=== PATIENT | female | born 1955 | race Caucasian/White ===

== ENCOUNTER 2018-10-17 22:16 | Emergency (ER) | payer BC ==
[~2018-10-17] VITALS: Ht 162.6 cm; Wt 90.7 kg
[~2018-10-17 22:16] MED LIST: ACET325 PO; ALBU90OI61 INH; AMOCLA500 PO; ASPI81EC PO; BENADRYL25 MG PO; CYAN500 PO; DOCU100 PO; FLUT.05NI; FOLI1 PO; MAGCHL64ER PO; OMEP20ER PO; OXYC5 PO; PRIM50 PO; PROP60 PO; TELM40 PO; THIA100 PO
[2018-10-17 23:24] LABS: BASOPHILS ABSOLUTE AUTO 0.08 K/mm3 (0.00-0.23); BASOPHILS PERCENT AUTO 1 % (0-2); EOSINOPHILS ABSOLUTE AUTO 0.51 K/mm3 (0.00-0.68); EOSINOPHILS PERCENT AUTO 7 % (0-6); Hematocrit 38.9 % (33.0-51.0); Hemoglobin 13.1 g/dL (11.5-16.0); IMMATURE GRAN ABSOLUTE AUTO 0.02 K/mm3 (0.00-0.10); IMMATURE GRAN PERCENT AUTO 0 % (0-1); LYMPHOCYTES ABSOLUTE AUTO 1.91 K/mm3 (0.84-5.20); LYMPHOCYTES PERCENT AUTO 24 % (21-46); MONOCYTES ABSOLUTE AUTO 1.05 K/mm3 (0.16-1.47); MONOCYTES PERCENT AUTO 13 % (4-13); Mean Corpuscular HGB 33.2 pg (26.0-34.0); Mean Corpuscular HGB Conc 33.7 g/dL (31.5-36.5); Mean Corpuscular Volume 99 fL (80-100); Mean Platelet Volume 11.2 fL (9.1-12.4); NEUTROPHILS ABSOLUTE AUTO 4.29 K/mm3 (1.96-9.15); NEUTROPHILS PERCENT AUTO 55 % (41-73); Platelet Count 142 K/mm3 (150-400); RDW Coefficient Variation 13.4 % (11.7-14.2); RDW Standard Deviation 48.9 fL (35.1-46.3); Red Blood Cell Count 3.94 M/mm3 (3.80-5.20); White Blood Cell Count 7.86 K/mm3 (4.00-11.30)
[2018-10-17 23:42] LABS: Alanine Aminotransfer (ALT/SGP 17 U/L (12-78); Albumin/Globulin Ratio 0.7 (0.8-1.8); Alk Phos 136 U/L (50-136); Anion Gap 7 mmol/L (6-16); Aspartate Aminotrans (AST/SGOT 19 U/L (12-37); Bilirubin, Total 1.6 mg/dL (0.1-1.0); Blood Urea Nitrogen 23 mg/dL (8-24); Bun/Creatinine Ratio 19.3 (12.0-20.0); CO2, Blood 25 mmol/L (21-32); Calcium, Blood 9.3 mg/dL (8.5-10.1); Chloride, Blood 108 mmol/L (98-108); Creatinine, Blood 1.19 mg/dL (0.40-1.00); Ethanol (Alcohol), Blood, Med <3 mg/dL; Globulin, Blood 4.5 g/dL (2.2-4.0); Glomerular Filtration Rate 49 (60-); Glucose, Blood 109 mg/dL (70-99); Potassium, Blood 4.5 mmol/L (3.5-5.5); Sodium, Blood 140 mmol/L (136-145); Total Protein, Blood 7.5 g/dL (6.4-8.2)
[2018-10-17] MEDS ORDERED: LACT10SY PO (23:44)
[2018-10-17] MEDS ORDERED: FURO20 PO (23:45)
[2018-10-17] MEDS ORDERED: SPIR25 PO (23:45)
[2018-10-18 00:17] LABS: Source, Urine Clean Catch
[2018-10-18 00:24] LABS: Bilirubin, Urine Neg (Neg); Blood, Urine 1+ (Neg); Glucose Qualitative, Urine Neg (Neg); Ketones, Urine 1+ (Neg); Leukocyte Esterase, Urine 2+ (Neg); Nitrite, Urine Pos (Neg); Protein, Urine 2+ (Neg); Specific Gravity, Urine 1.015 (1.003-1.022); Urobilinogen, Urine NORM (Normal)
[2018-10-18 00:26] LABS: Appearance, Urine Hazy (Clear); Color, Urine Yellow (P-Yellow)
[2018-10-18 00:32] LABS: Bacteria Many /hpf; Squamous Epithelial Cells Few /hpf (Few); White Blood Cells, Urine 25-50 /hpf (0-5)
[2018-10-18] MEDS ORDERED: CEPH500 PO (00:47)
== END 2018-10-18 00:54 | disposition left against medical advice (07) ==
LOC: ER 22:16
PROVIDERS: Emergency Medicine
DX: K72.90 Hepatic failure, unspecified without coma (principal); N39.0 Urinary tract infection, site not specified; Z79.899 Other long term (current) drug therapy; I10 Essential (primary) hypertension
CPT/HCPCS: 36415; 71046; 80053; 81001; 82140; 85025; 87077; 87086; 87186; 93005; 93010; 99285-25; G0480

== ENCOUNTER 2019-02-23 19:27 | Emergency (ER) | payer BC ==
[~2019-02-23] VITALS: Ht 162.6 cm; Wt 92.1 kg
[~2019-02-23 19:27] MED LIST changes: +CEPH500 PO; +FURO20 PO; +LACT10SY PO; +SPIR25 PO
[2019-02-23 20:31] LABS: BASOPHILS ABSOLUTE AUTO 0.07 K/mm3 (0.00-0.23); BASOPHILS PERCENT AUTO 1 % (0-2); EOSINOPHILS ABSOLUTE AUTO 0.45 K/mm3 (0.00-0.68); EOSINOPHILS PERCENT AUTO 6 % (0-6); Hemoglobin 13.4 g/dL (11.5-16.0); IMMATURE GRAN ABSOLUTE AUTO 0.02 K/mm3 (0.00-0.10); IMMATURE GRAN PERCENT AUTO 0 % (0-1); LYMPHOCYTES ABSOLUTE AUTO 1.33 K/mm3 (0.84-5.20); LYMPHOCYTES PERCENT AUTO 18 % (21-46); MONOCYTES PERCENT AUTO 10 % (4-13); Mean Corpuscular HGB 32.1 pg (26.0-34.0); Mean Corpuscular HGB Conc 32.7 g/dL (31.5-36.5); Mean Corpuscular Volume 98 fL (80-100); Mean Platelet Volume 12.1 fL (9.1-12.4); NEUTROPHILS ABSOLUTE AUTO 4.67 K/mm3 (1.96-9.15); NEUTROPHILS PERCENT AUTO 64 % (41-73); Platelet Count 171 K/mm3 (150-400); RDW Coefficient Variation 14.6 % (11.7-14.2); RDW Standard Deviation 51.4 fL (35.1-46.3); Red Blood Cell Count 4.18 M/mm3 (3.80-5.20); White Blood Cell Count 7.24 K/mm3 (4.00-11.30)
[2019-02-23 20:48] LABS: International Normalized Ratio 1.18; Prothrombin Time Results 12.3 Sec (9.7-11.5)
[2019-02-23 20:51] LABS: Albumin, Blood 3.3 g/dL (3.4-5.0); Albumin/Globulin Ratio 0.7 (0.8-1.8); Bun/Creatinine Ratio 29.3 (12.0-20.0); Calcium, Blood 9.9 mg/dL (8.5-10.1); Creatinine, Blood 1.33 mg/dL (0.40-1.00); Total Protein, Blood 8.3 g/dL (6.4-8.2)
[2019-02-23] MEDS ORDERED: EPCLUSA 400 MG1 EACH PO (21:54)
[2019-02-23] MEDS ORDERED: RIBAPAK PO (21:55)
[2019-02-23 22:17] LABS: Source, Urine Voided
[2019-02-23 22:22] LABS: Blood, Urine 5+ (Neg); Color, Urine Amber (P-Yellow); Glucose Qualitative, Urine Neg (Neg); Ketones, Urine 1+ (Neg); Leukocyte Esterase, Urine 1+ (Neg); Nitrite, Urine Neg (Neg); Protein, Urine 2+ (Neg); Urobilinogen, Urine 1+ (Normal)
[2019-02-23 22:29] LABS: Appearance, Urine Hazy (Clear); Bilirubin, Urine 1+ (Neg)
[2019-02-23 22:30] LABS: Red Blood Cells, Urine 25-50 /hpf (0-2)
[2019-02-23 22:31] LABS: Bacteria Mod /hpf; Squamous Epithelial Cells Mod /hpf (Few)
== END 2019-02-23 23:45 | disposition home or self-care (01) ==
LOC: ER 19:27
PROVIDERS: Physician Assistant
DX: K72.90 Hepatic failure, unspecified without coma (principal); I10 Essential (primary) hypertension; Z79.899 Other long term (current) drug therapy
CPT/HCPCS: 36415; 71046; 80053; 81001; 82140; 85025; 85610; 85730; 87086; 93005; 93010; 96360; 99284-25; G0480; J7030; P9612

== ENCOUNTER 2019-03-05 10:54 | Inpatient (IN) | payer BC ==
[~2019-03-05] VITALS: Ht 165.1 cm; Wt 91.2 kg
[~2019-03-05 10:54] MED LIST changes: +Aldactone100 MG PO; +EPCLUSA 400 MG1 EACH PO; -FURO20 PO; +FURO40 PO; +RIBAPAK PO; -SPIR25 PO
[2019-03-05 11:25] LABS: BASOPHILS ABSOLUTE AUTO 0.06 K/mm3 (0.00-0.23); BASOPHILS PERCENT AUTO 1 % (0-2); EOSINOPHILS ABSOLUTE AUTO 0.17 K/mm3 (0.00-0.68); EOSINOPHILS PERCENT AUTO 2 % (0-6); Hematocrit 37.6 % (33.0-51.0); Hemoglobin 12.2 g/dL (11.5-16.0); IMMATURE GRAN ABSOLUTE AUTO 0.04 K/mm3 (0.00-0.10); IMMATURE GRAN PERCENT AUTO 0 % (0-1); LYMPHOCYTES ABSOLUTE AUTO 1.17 K/mm3 (0.84-5.20); LYMPHOCYTES PERCENT AUTO 13 % (21-46); MONOCYTES PERCENT AUTO 9 % (4-13); Mean Corpuscular HGB 33.4 pg (26.0-34.0); Mean Corpuscular HGB Conc 32.4 g/dL (31.5-36.5); Mean Corpuscular Volume 103 fL (80-100); Mean Platelet Volume 12.3 fL (9.1-12.4); NEUTROPHILS ABSOLUTE AUTO 6.68 K/mm3 (1.96-9.15); NEUTROPHILS PERCENT AUTO 75 % (41-73); Platelet Count 152 K/mm3 (150-400); RDW Coefficient Variation 17.3 % (11.7-14.2); RDW Standard Deviation 65.1 fL (35.1-46.3); Red Blood Cell Count 3.65 M/mm3 (3.80-5.20); White Blood Cell Count 8.92 K/mm3 (4.00-11.30)
[2019-03-05 12:14] LABS: Alanine Aminotransfer (ALT/SGP 17 U/L (12-78); Albumin, Blood 3.1 g/dL (3.4-5.0); Albumin/Globulin Ratio 0.7 (0.8-1.8); Alk Phos 146 U/L (50-136); Anion Gap 7 mmol/L (6-16); Aspartate Aminotrans (AST/SGOT 18 U/L (12-37); Bilirubin, Total 2.1 mg/dL (0.1-1.0); Blood Urea Nitrogen 39 mg/dL (8-24); Bun/Creatinine Ratio 24.7 (12.0-20.0); CO2, Blood 22 mmol/L (21-32); Calcium, Blood 9.6 mg/dL (8.5-10.1); Chloride, Blood 108 mmol/L (98-108); Creatinine, Blood 1.58 mg/dL (0.40-1.00); Globulin, Blood 4.5 g/dL (2.2-4.0); Glomerular Filtration Rate 35 (60-); Glucose, Blood 151 mg/dL (70-99); Potassium, Blood 5.8 mmol/L (3.5-5.5); Sodium, Blood 137 mmol/L (136-145); Total Protein, Blood 7.6 g/dL (6.4-8.2); Troponin I <0.015 ng/mL (0.000-0.040)
[2019-03-05 13:04] LABS: Source, Urine Catheter
[2019-03-05 13:17] LABS: Bilirubin, Urine Neg (Neg); Blood, Urine 5+ (Neg); Glucose Qualitative, Urine Neg (Neg); Ketones, Urine 1+ (Neg); Leukocyte Esterase, Urine 3+ (Neg); Nitrite, Urine Neg (Neg); Protein, Urine 2+ (Neg); Specific Gravity, Urine 1.015 (1.003-1.022); Urobilinogen, Urine 1+ (Normal)
[2019-03-05] MEDS ORDERED: RIFA550T2 PO (13:33)
[2019-03-05] MEDS ORDERED: GABA300 PO (13:34)
[2019-03-05] MEDS ORDERED: MONT10T PO (13:36)
[2019-03-05] MEDS ORDERED: Ribavirin200 M1 PO (13:38)
[2019-03-05] MEDS ORDERED: Omeprazole20 M1 PO (13:40)
[2019-03-05 13:55] LABS: Appearance, Urine Turbid (Clear); Color, Urine Yellow (P-Yellow)
[2019-03-05 13:57] LABS: Red Blood Cells, Urine TNTC /hpf (0-2); White Blood Cells, Urine TNTC /hpf (0-5)
[2019-03-05 13:59] LABS: Bacteria Many /hpf; Squamous Epithelial Cells Many /hpf (Few); Transitional Epithelial Cells Mod /hpf (0-Rare)
[2019-03-05 14:08] LABS: U Amphetamine Screen Not Detected; U Barbituate Screen Not Detected; U Benzodiazapine Screen Not Detected; U Buprenorphine Screen Not Detected; U Cannabinoids Screen Not Detected; U Cocaine Screen Not Detected; U Methadone Screen Not Detected; U Methamphetamine Screen Not Detected; U Opiates Screen Not Detected; U Oxycodone Screen Not Detected; U Phencyclidine Screen Not Detected; U Propoxyphene Screen Not Detected
[2019-03-05] MEDS ORDERED: Super B-50 Com1 EACH PO (14:49)
--- NOTE | 2019-03-05 18:29 | NUR ---
SHIFT SUMMARY Assumed care of pt upon arrival to unit at 1444. Report received from Arik DUNN. Pt arrived to unit without family. Family has not been in to see pt since arrival to unit. Neli called unit to request update on patient. Update given since Neli is listed as next of kin. Pt responsive to pain only. Pt arrived with clamped NG tube, used for delivering lactulose. Tube placement verified with air and auscultation prior to 1700 lactulose administration. XR results noted. Sinus bradycardia per telemetry. SCDs for VTE prophylaxis. Continuous oximetry in place. Bed in lowest position. Call light in reach. Bed alarm on.
--- NOTE | 2019-03-05 19:29 | NUR ---
PM NOTE. ASSUMED CARE OF PT APROX 1900, PT IS ALERT ONLY TO SELFT AT THIS TIME. WHEN PT IS ASKED WHERE SHE IS AT SHE CAN STATE [place]" BUT WHEN ASKED HER BIRTHDAY OR NAME SHE ALSO RESPONDS "[place]." PT IS UNABLE TO STATE NAME BUT SHE IS RESPONDING TO VERBAL STIMULI AT THIS TIME. TELE INTACT, SB IN THE 50'S PER INTERMEDIATE TEACHER, PT'S BP 137/76. NO EDMEA NOTED ON ASSESSMENT. L/S CLEAR T/O. PT IS ON RA AT 99%. BT PRESENT AND HYPOACTIVE, ABD IS SOFT AND NONTENDER TO PALP. NG TUBE IS IN PLACE. CALL LIGHT IN REACH, BED IS LOCKED AND LOW WILL CONTINUE TO MONITOR.
--- NOTE | 2019-03-06 02:57 | NUR ---
PT UPDATE... PT'S MENTAL STATUS HAS GREATLY IMPROVED, PT IS ABLE TO STATE HER FULL NAME, BIRTHDAY AND PLACE, PT UNSURE OF THE DATE BUT STATED "MAY SOMETIME" AND KNEW THE YEAR. PT IS STILL CONFUSING SOME WORDS AND SEARCHING FOR WORDS BUT IS ABLE TO MAKE HER NEEDS KNOWN. BEDSIDE SWALLOW STUDY DONE, PT WAS ABLE TO DRINK WATER FROM A GLASS WITH NO ISSUE. PROVIDER WAS CALLED AND ORDERES TO D/C THE NG TUBE WERE OBTAINED. NG TUBE WAS D/C'D WNL. STINSON AND RECTAL TUBE IN PLACE, SECURED TO THE BED AND DRAINING TO GRAVITY. WILL CONTINUE TO MONITOR.
[2019-03-06 03:36] LABS: BASOPHILS ABSOLUTE AUTO 0.08 K/mm3 (0.00-0.23); BASOPHILS PERCENT AUTO 1 % (0-2); EOSINOPHILS ABSOLUTE AUTO 0.28 K/mm3 (0.00-0.68); EOSINOPHILS PERCENT AUTO 3 % (0-6); Hematocrit 38.2 % (33.0-51.0); Hemoglobin 11.8 g/dL (11.5-16.0); IMMATURE GRAN ABSOLUTE AUTO 0.03 K/mm3 (0.00-0.10); IMMATURE GRAN PERCENT AUTO 0 % (0-1); LYMPHOCYTES ABSOLUTE AUTO 1.15 K/mm3 (0.84-5.20); LYMPHOCYTES PERCENT AUTO 12 % (21-46); MONOCYTES ABSOLUTE AUTO 1.07 K/mm3 (0.16-1.47); MONOCYTES PERCENT AUTO 11 % (4-13); Mean Corpuscular HGB 33.2 pg (26.0-34.0); Mean Corpuscular HGB Conc 30.9 g/dL (31.5-36.5); Mean Corpuscular Volume 108 fL (80-100); NEUTROPHILS ABSOLUTE AUTO 7.22 K/mm3 (1.96-9.15); NEUTROPHILS PERCENT AUTO 74 % (41-73); Platelet Count 136 K/mm3 (150-400); RDW Coefficient Variation 17.9 % (11.7-14.2); Red Blood Cell Count 3.55 M/mm3 (3.80-5.20); White Blood Cell Count 9.83 K/mm3 (4.00-11.30)
[2019-03-06 03:55] LABS: Albumin, Blood 2.7 g/dL (3.4-5.0); Albumin/Globulin Ratio 0.7 (0.8-1.8); Bilirubin, Total 2.2 mg/dL (0.1-1.0); Calcium, Blood 8.9 mg/dL (8.5-10.1); Creatinine, Blood 1.1 mg/dL (0.40-1.00); Magnesium, Blood 2.2 mg/dL (1.6-2.4); Potassium, Blood 4.7 mmol/L (3.5-5.5); Total Protein, Blood 6.7 g/dL (6.4-8.2)
--- NOTE | 2019-03-06 06:20 | NUR ---
SHIFT SUMMARY. PT'S MENTATION HAS GREATLY IMPROVED THIS SHIFT. PT IS A&Ox4. SHE IS STILL SLURRING HER WORDS SLIGHTLY, PT STATES THIS IS NOT NORMAL FOR HER. PT IS STILL HAVING GENERALIZED WEAKNESS. PT'S VS HAVE BEEN STABLE T/O SHIFT. NO EVENTS ON TELE. PT DENIES ANY CHEST PAIN/PRESSURE, N/V OR SOB. RECTAL TUBE AND STINSON ARE STILL PATENT AND DRAINING TO GRAVITY. CALL LIGHT IN REACH, BED IS LOCKED AND LOW WILL CONTINUE TO MONITOR UNTIL REPORT IS GIVEN TO ONCOMING RN.
--- NOTE | 2019-03-06 12:15 | NUR ---
SHIFT SUMMARY/TRANSFER NOTE: ASSUMED CARE OF PT AT 0700, RECEIVED REPORT FROM SERA DUNN. UPON ENTERING ROOM, PT WAS ALERT AND ORIENTED TO SELF AND FAMILY. PT IS CONFUSED AND IS UNABLE TO RECALL RECENT MEMORIES. PT'S MEDICAL HISTORY WAS RECIVED FROM PT'S FAMILY MEMBER MAGALIS Holland. PT HAS BEEN COOPRATIVE AND ABLE TO FOLLOW DIRECTIONS. PT HAS BEEN UP TO CHAIR AND HAS REQUIRED 1 PERSON ASSISTANCE, DUE TO PT BEING UNSTEADY ON HER FEET. PT WAS ABLE TO TAKE ORAL MEDS W/O COMPLICATIONS AND WAS ABLE TO TOLERATE ORAL FLUIDS. PT REMAINS ON RA AND V/S ARE STABLE. PT WAS PLACED ON MEDICAL STATUS AND WAS TRASFERED THIS AFTERNOON VIA , REPORT WAS GIVEN TO RAMONA DUNN. STINSON AND RECTAL TUBE WAS TAKEN OUT BEFORE TRASFER TO MEDICAL FLOOR UNIT.
--- NOTE | 2019-03-06 18:07 | NUR ---
SHIFT SUMMARY PT IS A/O BUT CONFUSED AT TIMES. HER SPEECH IS SLOW AND SLURRED. SHE IS SLOW WHEN MOVING. SHE IS A STANDBY ASSIST TO THE COMMODE SHE IS UNSTEADY ON HER FEET. SHE HAS BEEN CALM AND COOPERATIVE WITH TREATMENT. SHE USES THE CALL LIGHT APPROPRIATLY.
--- NOTE | 2019-03-07 03:37 | NUR ---
LATE ENTRY PHYSICIAN CORRESPONDENCE [id number] PATIENT ARRIVED TO HOSPITAL 03/05/19. ORDER FOR Q6 BLOOD SUGAR CHECKS WELL AN ORDER FOR NPO ON SAID DAY. PATIENT IS CURRENTLY ON A REGULAR DIET AND HAS NO HX OF DM. ASKED FOR ORDERED TO BE D/C. ON-CALL STATED TO HAVE ATTENDING RE-EVALUATE AND TO KEEP ORDER IN PLACE.
--- NOTE | 2019-03-07 04:53 | NUR ---
SHIFT SUMMARY A/O, ABLE TO MAKE NEEDS KNOWN; SLOW TO RESPOND AT TIMES. COOPERATIVE WITH CARE. ANSWERS QUESTIONS APPROPRIATELY. MULTIPLE REQUESTS FROM STAFF THROUGHOUT SHIFT. DID NOT APPEAR TO REST AT ALL T/O NIGHT. UP TO BSC PERIODICALLY T/O SHIFT. BP SLIGHTLY HYPOTENSIVE THIS AM; ALL OTHER VS WNL. CALL LIGHT AND BELONGINGS WITHIN REACH. WCTM. BED IN LOWEST POSITION. ALARM ON. REPORT TO ONCOMING RN.
[2019-03-07 05:15] LABS: BASOPHILS ABSOLUTE AUTO 0.05 K/mm3 (0.00-0.23); BASOPHILS PERCENT AUTO 1 % (0-2); EOSINOPHILS ABSOLUTE AUTO 0.35 K/mm3 (0.00-0.68); EOSINOPHILS PERCENT AUTO 4 % (0-6); Hemoglobin 9.6 g/dL (11.5-16.0); IMMATURE GRAN ABSOLUTE AUTO 0.03 K/mm3 (0.00-0.10); IMMATURE GRAN PERCENT AUTO 0 % (0-1); LYMPHOCYTES ABSOLUTE AUTO 1.26 K/mm3 (0.84-5.20); LYMPHOCYTES PERCENT AUTO 16 % (21-46); MONOCYTES ABSOLUTE AUTO 0.98 K/mm3 (0.16-1.47); MONOCYTES PERCENT AUTO 12 % (4-13); Mean Corpuscular HGB 33.1 pg (26.0-34.0); Mean Corpuscular Volume 107 fL (80-100); Mean Platelet Volume 11.8 fL (9.1-12.4); NEUTROPHILS ABSOLUTE AUTO 5.35 K/mm3 (1.96-9.15); NEUTROPHILS PERCENT AUTO 67 % (41-73); Platelet Count 120 K/mm3 (150-400); RDW Coefficient Variation 17.3 % (11.7-14.2); RDW Standard Deviation 66.9 fL (35.1-46.3); White Blood Cell Count 8.02 K/mm3 (4.00-11.30)
[2019-03-07 05:46] LABS: Alanine Aminotransfer (ALT/SGP 16 U/L (12-78); Albumin, Blood 2.5 g/dL (3.4-5.0); Albumin/Globulin Ratio 0.7 (0.8-1.8); Alk Phos 117 U/L (50-136); Anion Gap 5 mmol/L (6-16); Aspartate Aminotrans (AST/SGOT 17 U/L (12-37); Bilirubin, Total 2.8 mg/dL (0.1-1.0); Blood Urea Nitrogen 19 mg/dL (8-24); Bun/Creatinine Ratio 20.7 (12.0-20.0); CO2, Blood 17 mmol/L (21-32); Calcium, Blood 8.3 mg/dL (8.5-10.1); Chloride, Blood 120 mmol/L (98-108); Creatinine, Blood 0.92 mg/dL (0.40-1.00); Globulin, Blood 3.6 g/dL (2.2-4.0); Glomerular Filtration Rate >60 (60-); Glucose, Blood 117 mg/dL (70-99); Potassium, Blood 4.5 mmol/L (3.5-5.5); Sodium, Blood 142 mmol/L (136-145); Total Protein, Blood 6.1 g/dL (6.4-8.2)
--- NOTE | 2019-03-07 09:38 | NUR ---
D/C UPDATE: DR. ALLRED IN TO SPEAK WITH PT'S [place] THIS AM. ROSE MARIE ASKS DR. ALLRED WHAT HER RECOMMENDATION IS ON IF THE PATIENT SHOULD D/C WITH HOSPICE TODAY OR WAIT UNTIL SATURDAY. DR. ALLRED ADVISES THAT SHE ADVISES FOR SATURDAY FOR CONTINUED IV ABX THROUGH THE WEEKEND. CALLED [facility] TO CANCEL TRANSPORT. CALL OUT TO [facility], WAITING FOR RETURN CALL.
--- NOTE | 2019-03-07 11:27 | NUR ---
NURSE NOTIFIED DR. DAVALOS AT THIS TIME OF URINE CULTURE RESULTS. SHE STATED THAT SHE WILL TAKE A LOOK.
--- NOTE | 2019-03-07 18:27 | NUR ---
SHIFT SUMMARY PT AXO, PLEASANT AND COOPERATIVE WITH CARE THOUGH SLOW TO RESPOND AND FORGETFUL . VSS. PT UP WITH SBA TO BSC. PHYSICAL THERAPY EVALUATED, SEE NOTE. IV PATENT AND SALINE LOCKED. NO ACUTE CHANGES THIS SHIFT. BED IN LOW POSITION, CALL LIGHT WITHIN REACH. PT DENIES PAIN, SOB AND NV.
[2019-03-08 05:16] LABS: BASOPHILS ABSOLUTE AUTO 0.03 K/mm3 (0.00-0.23); BASOPHILS PERCENT AUTO 1 % (0-2); EOSINOPHILS ABSOLUTE AUTO 0.32 K/mm3 (0.00-0.68); EOSINOPHILS PERCENT AUTO 6 % (0-6); Hematocrit 32.4 % (33.0-51.0); Hemoglobin 10.3 g/dL (11.5-16.0); IMMATURE GRAN ABSOLUTE AUTO 0.03 K/mm3 (0.00-0.10); IMMATURE GRAN PERCENT AUTO 1 % (0-1); LYMPHOCYTES ABSOLUTE AUTO 0.93 K/mm3 (0.84-5.20); LYMPHOCYTES PERCENT AUTO 17 % (21-46); MONOCYTES ABSOLUTE AUTO 0.59 K/mm3 (0.16-1.47); MONOCYTES PERCENT AUTO 11 % (4-13); Mean Corpuscular HGB 34.3 pg (26.0-34.0); Mean Corpuscular HGB Conc 31.8 g/dL (31.5-36.5); Mean Corpuscular Volume 108 fL (80-100); Mean Platelet Volume 11.8 fL (9.1-12.4); NEUTROPHILS ABSOLUTE AUTO 3.46 K/mm3 (1.96-9.15); NEUTROPHILS PERCENT AUTO 64 % (41-73); Platelet Count 95 K/mm3 (150-400); RDW Coefficient Variation 16.8 % (11.7-14.2); RDW Standard Deviation 66.1 fL (35.1-46.3); White Blood Cell Count 5.36 K/mm3 (4.00-11.30)
[2019-03-08 05:34] LABS: Alanine Aminotransfer (ALT/SGP 17 U/L (12-78); Albumin, Blood 2.6 g/dL (3.4-5.0); Albumin/Globulin Ratio 0.7 (0.8-1.8); Alk Phos 122 U/L (50-136); Anion Gap 6 mmol/L (6-16); Aspartate Aminotrans (AST/SGOT 23 U/L (12-37); Bilirubin, Total 3.3 mg/dL (0.1-1.0); Blood Urea Nitrogen 12 mg/dL (8-24); Bun/Creatinine Ratio 15.7 (12.0-20.0); CO2, Blood 17 mmol/L (21-32); Chloride, Blood 119 mmol/L (98-108); Creatinine, Blood 0.76 mg/dL (0.40-1.00); Globulin, Blood 3.8 g/dL (2.2-4.0); Glomerular Filtration Rate >60 (60-); Glucose, Blood 109 mg/dL (70-99); Magnesium, Blood 1.6 mg/dL (1.6-2.4); Potassium, Blood 4.5 mmol/L (3.5-5.5); Sodium, Blood 142 mmol/L (136-145); Total Protein, Blood 6.4 g/dL (6.4-8.2)
--- NOTE | 2019-03-08 06:57 | NUR ---
Shift summary: Pt up to bedside commode every 2-3 hours during night with one assist. Pt is having yellow diahrea secondary to lactulose. No c/o discomfort. Pt anticipating d/c this am.
[2019-03-08] MEDS ORDERED: LEVFLO500 PO (11:52)
--- NOTE | 2019-03-08 16:17 | NUR ---
DISCHARGE NOTE PT DISCHARGED HOME WITH FAMILY PRESENT. PT LEFT ROOM AT 1455 VIA WHEELCHAIR WITH RN ESCORT. PT EDUCATED ON MEDICATIONS AND INSTRUCTED TO FOLLOW UP WITH HER PCP. SHE AGREES. ALL QUESTIONS ANSWERED. FAMILY STATES THAT SHE HAS AN APPOINTMENT ON THE March IN [place] WITH A SPECIALIST. IV DC'D AND BELONGINGS RETURNED
== END 2019-03-08 14:56 | disposition home or self-care (01) | DRG 682 ==
LOC: ER 10:54 → PCU 13:44 → MEDS 03-06 12:00 → ENPENDDIS 03-08 10:51 → MEDS 03-08 14:56
PROVIDERS: Emergency Medicine; ADMIT Internal Medicine
DX: N17.9 Acute kidney failure, unspecified (principal); G93.41 Metabolic encephalopathy; N39.0 Urinary tract infection, site not specified; B19.20 Unspecified viral hepatitis C without hepatic coma; K74.60 Unspecified cirrhosis of liver; Z91.19 Patient's noncompliance with other medical treatment and regimen; I10 Essential (primary) hypertension; B96.20 Unspecified Escherichia coli [E. coli] as the cause of diseases classified elsewhere
CPT/HCPCS: 36415; 51702; 74018; 80053; 81001; 82140; 82947; 83735; 84484; 85025; 87077; 87086; 87186; 93005; 93010; 97110; 97116; 97162; 99285-25; C9113; J7030

== ENCOUNTER 2024-05-02 12:58 | Observation (INO) | payer MEDICARE, BC ==
[~2024-05-02] VITALS: Ht 165.1 cm; Wt 84.3 kg
[~2024-05-02 12:58] MED LIST changes: +AMOCLA875 PO; +Bupropion HCl75 MG PO; +FUROSEMIDE20 MG PO; +GABA300 PO; +LEVFLO500 PO; +MONT10T PO; +Omeprazole20 M1 PO; +RIFA550T2 PO; +ROXICODONE5 MG PO; +Ribavirin200 M1 PO; +Super B-50 Com1 EACH PO; +VISBIOME 112.51 EACH PO
[2024-05-02 13:55] LABS: BASOPHILS ABSOLUTE AUTO 0.07 K/mm3 (0.00-0.23); BASOPHILS PERCENT AUTO 2 % (0-2); EOSINOPHILS ABSOLUTE AUTO 0.19 K/mm3 (0.00-0.68); EOSINOPHILS PERCENT AUTO 4 % (0-6); Hematocrit 40.9 % (33.0-51.0); Hemoglobin 14.2 g/dL (11.5-16.0); IMMATURE GRAN ABSOLUTE AUTO 0.01 K/mm3 (0.00-0.10); IMMATURE GRAN PERCENT AUTO 0 % (0-1); LYMPHOCYTES ABSOLUTE AUTO 1.16 K/mm3 (0.84-5.20); LYMPHOCYTES PERCENT AUTO 25 % (21-46); MONOCYTES PERCENT AUTO 11 % (4-13); Mean Corpuscular HGB 33.9 pg (26.0-34.0); Mean Corpuscular HGB Conc 34.7 g/dL (31.5-36.5); Mean Corpuscular Volume 98 fL (80-100); Mean Platelet Volume 12.2 fL (9.1-12.4); NEUTROPHILS ABSOLUTE AUTO 2.72 K/mm3 (1.96-9.15); NEUTROPHILS PERCENT AUTO 59 % (41-73); Platelet Count 122 K/mm3 (150-400); RDW Coefficient Variation 13.1 % (11.7-14.2); RDW Standard Deviation 46.5 fL (35.1-46.3); Red Blood Cell Count 4.19 M/mm3 (3.80-5.20); White Blood Cell Count 4.65 K/mm3 (4.00-11.30)
[2024-05-02 14:28] LABS: Alanine Aminotransfer (ALT/SGP 19 U/L (12-78); Albumin, Blood 3.4 g/dL (3.4-5.0); Alk Phos 89 U/L (50-136); Anion Gap 10 mmol/L (3-11); Aspartate Aminotrans (AST/SGOT 23 U/L (12-37); Bilirubin, Total 1.3 mg/dL (0.1-1.0); Blood Urea Nitrogen 24 mg/dL (8-24); Bun/Creatinine Ratio 19.8 (12.0-20.0); CO2, Blood 23 mmol/L (21-32); Calcium, Blood 9.6 mg/dL (8.5-10.1); Chloride, Blood 116 mmol/L (98-108); Creatinine, Blood 1.21 mg/dL (0.40-1.00); Ethanol (Alcohol), Blood, Med <3 mg/dL; Globulin, Blood 3.5 g/dL (2.2-4.0); Glomerular Filtration Rate 49 (60-); Glucose, Blood 149 mg/dL (70-99); Potassium, Blood 5.4 mmol/L (3.5-5.5); Sodium, Blood 144 mmol/L (136-145); Total Protein, Blood 6.9 g/dL (6.4-8.2)
[2024-05-02] MEDS ORDERED: Lactulose 20 GM/30 ML UDC PO ONE (14:35)
[2024-05-02 14:52] LABS: Source, Urine Straight Cath
[2024-05-02 15:02] LABS: Appearance, Urine Clear (Clear); Bilirubin, Urine Neg (Neg); Blood, Urine 2+ (Neg); Color, Urine Yellow (P-Yellow); Glucose Qualitative, Urine Neg (Neg); Ketones, Urine Neg (Neg); Leukocyte Esterase, Urine Neg (Neg); Nitrite, Urine Neg (Neg); Protein, Urine Neg (Neg); Urobilinogen, Urine 2+ (Normal)
[2024-05-02 15:10] LABS: White Blood Cells, Urine 0-2 /hpf (0-5)
[2024-05-02 15:11] LABS: Bacteria Rare /hpf; Squamous Epithelial Cells Few /hpf (Few)
[2024-05-02] MEDS ORDERED: CefTRIAXone Sodium 1,000 MG in NS 100 ML IV SCH (18:00)
[2024-05-02] MEDS ORDERED: NS 1,000 ML IV SCH (19:05)
[2024-05-02 19:25] VITALS: BP 134/66
[2024-05-02] MEDS ORDERED: Lactulose 20 GM/30 ML UDC PO SCH (21:00)
[2024-05-02] MEDS ORDERED: Lactobacil 2-S.Thermo-Bifido 1 1 Cap PO SCH ×2 (21:00)
[2024-05-03 05:16] VITALS: BP 134/59
[2024-05-03 05:17] LABS: BASOPHILS ABSOLUTE AUTO 0.07 K/mm3 (0.00-0.23); BASOPHILS PERCENT AUTO 1 % (0-2); EOSINOPHILS ABSOLUTE AUTO 0.21 K/mm3 (0.00-0.68); EOSINOPHILS PERCENT AUTO 4 % (0-6); Hematocrit 37.4 % (33.0-51.0); Hemoglobin 12.8 g/dL (11.5-16.0); IMMATURE GRAN ABSOLUTE AUTO 0.01 K/mm3 (0.00-0.10); IMMATURE GRAN PERCENT AUTO 0 % (0-1); LYMPHOCYTES PERCENT AUTO 22 % (21-46); MONOCYTES ABSOLUTE AUTO 0.69 K/mm3 (0.16-1.47); MONOCYTES PERCENT AUTO 12 % (4-13); Mean Corpuscular HGB Conc 34.2 g/dL (31.5-36.5); Mean Corpuscular Volume 99 fL (80-100); Mean Platelet Volume 11.8 fL (9.1-12.4); NEUTROPHILS ABSOLUTE AUTO 3.63 K/mm3 (1.96-9.15); NEUTROPHILS PERCENT AUTO 61 % (41-73); Platelet Count 99 K/mm3 (150-400); RDW Coefficient Variation 13.2 % (11.7-14.2); RDW Standard Deviation 47.7 fL (35.1-46.3); Red Blood Cell Count 3.77 M/mm3 (3.80-5.20); White Blood Cell Count 5.91 K/mm3 (4.00-11.30)
--- NOTE | 2024-05-03 05:18 | NUR ---
SHIFT SUMMARY PT A&OX3 AND PLEASANT. SOME AMS AT BASELINE. ABLE TO MAKE NEEDS KNOWN BUT DOES NOT ALWAYS USE CALL LIGHT. ABLE TO FOLLOW COMMANDS. NO C/O PAIN. PT ABLE TO USE BEDPAN TO HAVE LARGE LOOSE STOOL. PT RECIEVED IV ABX AFTER CULTURES WERE DRAWN. NS INFUSING PER EMAR. VSS. BED ALARM ON. BED IN LOWEST POSITION AND CALL LIGHT IN REACH.
[2024-05-03 05:45] LABS: Albumin, Blood 2.8 g/dL (3.4-5.0); Albumin/Globulin Ratio 0.9 (0.8-1.8); Bilirubin, Total 1.8 mg/dL (0.1-1.0); Bun/Creatinine Ratio 22.4 (12.0-20.0); Calcium, Blood 8.9 mg/dL (8.5-10.1); Creatinine, Blood 0.98 mg/dL (0.40-1.00); Potassium, Blood 4.5 mmol/L (3.5-5.5); Total Protein, Blood 5.8 g/dL (6.4-8.2)
[2024-05-03 07:20] VITALS: BP 118/60
[2024-05-03] MEDS ORDERED: Enoxaparin 40 MG/0.4 ML SYR SC SCH (09:00)
[2024-05-03] MEDS ORDERED: FURO20 PO (14:26)
--- NOTE | 2024-05-03 15:12 | NUR ---
DISCHARGE SUMMARY PATIENT DISCHARGED THIS SHIFT WITH FRIEND FRANCISCO JAVIER TO DRIVE. IV'S REMOVED PRIOR WITHOUT COMPLICATION. DISCHARGE PACKET GIVEN AND REVIEWED, VERBALIZED UNDERSTANDING AND PERFORMED TEACHBACK ON MEDS AND WHEN TO RETURN TO HOSPITAL. FRANCISCO JAVIER ALSO TAUGHT AND VERBALIZED UNDERSTANDING. A/O X 4 ON DISCHARGE.
== END 2024-05-03 14:50 | disposition home or self-care (01) ==
LOC: ER 12:58 → MEDS 12:59
PROVIDERS: Emergency Medicine; ADMIT Hospitalist
DX: G92.8 Other toxic encephalopathy (principal); K70.31 Alcoholic cirrhosis of liver with ascites; Z86.19 Personal history of other infectious and parasitic diseases; I10 Essential (primary) hypertension; I25.2 Old myocardial infarction; Z79.899 Other long term (current) drug therapy
CPT/HCPCS: 36415; 51702; 70450; 71045; 76705; 80053; 81001; 82140; 85025; 87040; 96372; 96374; 99285; A9270; G0378; J0696; J1650; J7030

== ENCOUNTER 2024-12-02 12:39 | Day surgery (SDC) | payer MEDICARE, BC ==
[~2024-12-02] VITALS: Ht 162.6 cm; Wt 75.6 kg
[~2024-12-02 12:39] MED LIST changes: +ALDACTONE100 MG; +Atropine Sulfate 0.1 MG/ML 10ML SYR ONE; +BUPR75 PO; +FURO20 PO; +Glycopyrrolate 0.2 MG/ML 1MLVIAL ONE; +Lactated Ringer's 1,000 ML IV ONE; +Lidocaine 2% 5 ML SDV ONE; +Lidocaine HCl/Pf 1% 5 ML VIAL ONE; +Methylene Blue 1% 100 MG/10 ML VIAL ONE; +Ondansetron HCl 2 MG / ML 2ML Vial ONE; +Prinivil10 MG PO; +ePHEDrine Sulfate 50 MG/ML 1ML Injection ONE; +propofoL 50 ML IV ONE
[2024-12-02] MEDS ORDERED: OMEP20ER (13:51)
[2024-12-02] MEDS ORDERED: CODACE30 (13:51)
[2024-12-02] MEDS ORDERED: Lactated Ringer's 1,000 ML IV ONE (14:39)
[2024-12-02 16:01] VITALS: BP 116/62
== END 2024-12-02 15:45 | disposition home or self-care (01) ==
LOC: ORSCSDS 12:39
PROVIDERS: Internal Medicine Gastroenterology
PROC: 0DJ08ZZ Inspection of Upper Intestinal Tract, Via Natural or Artificial Opening Endoscopic (ICD-10-PCS; principal; 2024-12-02 14:15)
DX: K70.30 Alcoholic cirrhosis of liver without ascites (principal); E11.9 Type 2 diabetes mellitus without complications; Z86.19 Personal history of other infectious and parasitic diseases; Z79.899 Other long term (current) drug therapy
CPT/HCPCS: 82947; J0461; J2003; J2405; J2704; J7120; Q9968